=== PATIENT | male | born 1990 | race American Indian/Alaskan Native ===

== ENCOUNTER 2017-08-10 05:52 | Emergency (ER) | payer BC ==
[2017-08-10 07:02] LABS: Basophils % (Auto) 0.6 % (0.0-1.8); Eosinophils # (Auto) 0.1 K/mm3 (0.0-0.4); Eosinophils % (Auto) 1.1 % (0.0-4.3); Hematocrit 44.9 % (35.5-45.6); Hemoglobin 14.5 gm/dl (11.8-15.2); Lymphocytes # (Auto) 2.3 K/mm3 (1.2-5.4); Lymphocytes % (Auto) 40.5 % (13.4-35.0); Mean Corpuscular HGB Conc 32 % (32-34); Mean Corpuscular Hemoglobin 27 pg (28-32); Mean Corpuscular Volume 85 fl (84-94); Monocytes # (Auto) 0.4 K/mm3 (0.0-0.8); Monocytes % (Auto) 7.5 % (0.0-7.3); Platelet Count 178 K/mm3 (140-440); Red Cell Distribution Width 14.1 % (13.2-15.2)
[2017-08-10 07:20] LABS: BUN/Creatinine Ratio 18; Blood Urea Nitrogen 14 mg/dL (9-20); Calcium 9.1 mg/dL (8.4-10.2); Hemolysis Index 18
[2017-08-10 08:21] LABS: Bilirubin,Urine NEG (Negative); Blood,Urine NEG (Negative); Color,Urine Yellow (Yellow); Mucus,Urine 2+ /HPF; Nitrite,Urine NEG (Negative); Protein,Urine <15 mg/dL mg/dL (Negative); Urobilinogen,Urine < 2.0 mg/dL (<2.0)
[2017-08-10 14:32] VITALS: BP 141/87
[2017-08-10] MEDS ORDERED: XYLOCAINE 1% MPF 5 mL INFILTRATI ONE (15:49)
[2017-08-10] MEDS ORDERED: ROCEPHIN IM ONE (15:49)
[2017-08-10] MEDS ORDERED: FLAGYL PO ONE (15:49)
[2017-08-10] MEDS ORDERED: ZITHROMAX PO ONE (15:49)
--- NOTE | 2017-08-10 15:52 | Emergency Department Report ---
ED Dysuria HPI - HPI Chief Complaint: Abdominal Pain Stated Complaint: penile dc Time Seen by Provider: 08/10/17 15:17 Duration: 3 Days Symptoms: Dysuria: Yes, Frequency: No, Suprapubic Pain: No, Flank Pain: Yes, Fever: No, Hematuria: No, Abdominal Pain: No, Previous UTI's: Yes (same in past got shot and meds) Other History: here w preg gf ED Review of Systems ROS: Stated complaint: ABDOMINAL PAIN, CONSTIPATION,PENIL DISCHARGE Other details as noted in HPI Comment: All other systems reviewed and negative Genitourinary: dysuria, discharge ED Past Medical Hx - Past Medical History Previous Medical History?: No - Surgical History Past Surgical History?: No - Social History Smoking Status: Current Some Day Smoker Substance Use Type: None Dysuria Exam - Exam General: Vital signs noted. No distress. Alert and acting appropriately. Exam: Yes Moist Mucous Membranes, No CVA Tenderness, No Abdominal Tenderness, No Rigidity or Guarding Labs: Lab Results 08/10/17 08/10/17 08/10/17 Range/Units 06:45 06:45 07:22 WBC 5.8 (4.5-11.0) K/mm3 RBC 5.30 H (3.65-5.03) M/mm3 Hgb 14.5 (11.8-15.2) gm/dl Hct 44.9 (35.5-45.6) % MCV 85 (84-94) fl MCH 27 L (28-32) pg MCHC 32 (32-34) % RDW 14.1 (13.2-15.2) % Plt Count 178 (140-440) K/mm3 Lymph % (Auto) 40.5 H (13.4-35.0) % [place] % (Auto) 7.5 H (0.0-7.3) % Eos % (Auto) 1.1 (0.0-4.3) % Baso % (Auto) 0.6 (0.0-1.8) % Lymph # 2.3 (1.2-5.4) K/mm3 [place] # 0.4 (0.0-0.8) K/mm3 Eos # 0.1 (0.0-0.4) K/mm3 Baso # 0.0 (0.0-0.1) K/mm3 Seg Neutrophils % 50.3 (40.0-70.0) % Seg Neutrophils # 2.9 (1.8-7.7) K/mm3 Sodium 140 (137-145) mmol/L Potassium 4.1 (3.6-5.0) mmol/L Chloride 102.4 (98-107) mmol/L Carbon Dioxide 23 (22-30) mmol/L Anion Gap 19 mmol/L BUN 14 (9-20) mg/dL Creatinine 0.8 (0.8-1.5) mg/dL Estimated GFR > 60 ml/min BUN/Creatinine Ratio 18 % Glucose 91 (75-100) mg/dL Calcium 9.1 (8.4-10.2) mg/dL Urine Color Yellow (Yellow) Urine Turbidity Clear (Clear) Urine pH 5.0 (5.0-7.0) Ur Specific [place] 1.034 H (1.003-1.030) Urine Protein <15 mg/dl (Negative) mg/dL Urine Glucose (UA) Neg (Negative) mg/dL Urine Ketones 20 (Negative) mg/dL Urine Blood Neg (Negative) Urine Nitrite Neg (Negative) Urine Bilirubin Neg (Negative) Urine Urobilinogen < 2.0 (<2.0) mg/dL Ur Leukocyte Esterase Tr (Negative) Urine WBC (Auto) 9.0 H (0.0-6.0) /HPF Urine RBC (Auto) 5.0 (0.0-6.0) /HPF Urine Mucus 2+ /HPF ED Course Vital Signs 08/10/17 08/10/17 06:01 14:31 Temperature 97.0 F L Pulse Rate 92 H 80 Respiratory 17 16 Rate Blood Pressure 149/84 Blood Pressure 141/87 [Right] O2 Sat by Pulse 99 98 Oximetry - Reevaluation(s) Reevaluation #1: 08/10/17 15:58 Patient presents to the emergency room today with his girlfriend who is . He states that he is having some dysuria and penile discharge. However, he is adamant this is not an STD. He states that he had this one other time and he got a shot and some pills. At that time he was treated for support. The female with him is denying signs and symptoms. Patient denies any abdominal pain or flank pain. Patient does work in construction. Specific gravity noted to be high discussed adequate hydration. Patient's vital signs are stable he's nontoxic non-ill appearing with no fever. He has no significant past medical history. No surgical history. After long discussion with patient we discussed the pros and cons of Treatment. He has elected for empiric treatment given the of his girlfriend. Additional labs are pending phone number confirmed with patient. We can call him if he needs additional treatment. ED Medical Decision Making - Lab Data Result diagrams: 08/10/17 06:45 08/10/17 06:45 - Medical Decision Making see note - Differential Diagnosis std v uti Critical care attestation.: If time is entered above; I have spent that time in minutes in the direct care of this critically ill patient, excluding procedure time. ED Disposition Clinical Impression: Dysuria, is Disposition: DC-01 TO HOME OR SELFCARE Is pt being admited?: No Does the pt Need Aspirin: No Condition: Stable Instructions: Dysuria (ED) Referrals: UDAY BRYAN MD [Primary Care Provider] - 3-5 Days Time of Disposition: 15:51
== END 2017-08-10 16:04 | disposition home or self-care (01) ==
LOC: ED 05:52
DX: R30.0 Dysuria (principal); R36.9 Urethral discharge, unspecified; R50.9 Fever, unspecified; F17.200 Nicotine dependence, unspecified, uncomplicated
CPT/HCPCS: 36415; 80048; 81001; 85025; 87086; 96372; 99283; J0696